=== PATIENT | male | born 1950 ===

== ENCOUNTER → 2022-01-05 | Outpatient (CLI) | payer BC ==
[~2022-01-05] MED LIST: AMLO5; ASPI325; ATEN100; ATOR20; BUPR75; CHLO25B; CHOL10002; INSUASPI; INSULANPEN; LISI20; METF500; TRAZ100
== END ==
LOC: LAB SHORT 14:20 → LAB 14:20
DX: A49.9 Bacterial infection, unspecified (principal)
CPT/HCPCS: 87070; 87205